=== PATIENT | female | born 1940 | race Caucasian/White ===

== ENCOUNTER → 2022-04-23 07:51 | Outpatient (CLI) | payer MEDICARE, SELFPAY ==
--- NOTE | 2022-04-23 | CA_ITS ---
FINAL REPORT CLINICAL HISTORY: .RF, Hx-previous dialysis FINDINGS: Aorta velocity: 139 cm/sec Right kidney: 8.3 cm. 2.9 cm Questionable calcified area in the upper pole the right kidney. Right intrarenal RI: 0.83 Right renal artery velocity: 128 cm/sec. Right RAR (Renal artery-Aortic Ratio): 0.92 Left Kidney: 186 cm. No evidence of hydronephrosis or mass. Left intrarenal RI: 0.82 Left renal artery velocity: 186 cm/sec. Left RAR (Renal Artery-Aortic Ratio): 1.35 IMPRESSION: No evidence of significant right renal artery stenosis. Less than 60% left renal artery stenosis. Questionable calcified area in the upper pole the right kidney. If indicated, renal mass protocol CT could further evaluate. CT angiogram or postcontrast MR angiogram would be more sensitive for evaluation of possible renal artery stenosis. Reviewed, Interpreted and Dictated by Julio Roberts III, MD Transcribed by Wilfrid Dugan Authenticated and [facility]
--- NOTE | 2022-04-23 08:38 | US_ITS ---
FINAL REPORT TECHNIQUE: Sonographic images were obtained of the retroperitoneum. CLINICAL HISTORY: CKD STAGE 4 FINDINGS: The right kidney measures 7.9 cm. The left kidney measures 9.7 cm. There are small renal cysts. There is a 1.7 cm left renal stone. There is a hyperechoic area in the upper pole of the left kidney measuring 3.3 cm of uncertain etiology. There is a small amount of left perinephric fluid that is nonspecific. The spleen measures 9.5 cm. IMPRESSION: Hyperechoic area of uncertain etiology in the upper pole the left kidney. CT could further evaluate. Left renal stone. Small amount of left perinephric fluid, nonspecific. Reviewed, Interpreted and Dictated by Julio Roberts III, MD Transcribed by Wilfrid Dugan Authenticated and [facility][1]
== END ==
PROVIDERS: Visit Provider Internal Medicine Nephrology
DX: N18.4 Chronic kidney disease, stage 4 (severe) (principal); E78.5 Hyperlipidemia, unspecified; E87.20 Acidosis, unspecified; I10 Essential (primary) hypertension
CPT/HCPCS: 76770; 93976

== ENCOUNTER → 2022-05-12 11:18 | Outpatient (CLI) | payer MEDICARE, SELFPAY ==
[2022-05-12 11:55] LABS: Microscopic, Urine URINE MICROSCOPIC (MICROSCOPIC)
[2022-05-12 12:28] LABS: Hematocrit 35.3 % (37.0-47.0); Hemoglobin 11.2 g/dL (12.2-16.2); Mean Corpuscular HGB Conc 31.9 g/dL (31.8-35.4); Mean Corpuscular Hemoglobin 30.1 pg (27.0-31.2); Mean Corpuscular Volume 94.5 fl (81-99); Platelet Count 318 K/mm3 (142-424); Red Blood Count 3.73 M/mm3 (4.20-5.40); Red Cell Distribution Width 15.6 % (11.5-17.5); White Blood Count 9.8 K/mm3 (4.8-10.8)
[2022-05-12 12:34] LABS: Appearance,Urine CLOUDY (Clear); Bilirubin,Urine Negative (Negative); Blood, Urine 3+ (Negative); Color,Urine YELLOW (Yellow); Glucose,Urine (UA) Negative (Negative); Ketones,Urine Negative (Negative); Leukocyte Esterase,Urine 2+ (Negative); Nitrate,Urine POSITIVE (Negative); PH,Urine 6.5 (5.0-8.5); Protein,Urine 2+ (Negative); Urobilinogen,Urine 0.2 EU/dl (0.2)
[2022-05-12 12:47] LABS: Hemoglobin A1C 8.1 % (4.0-6.0)
[2022-05-12 12:59] LABS: Bacteria,Urine 4+ /lpf; WBC,Urine TNTC #/hpf (0-3)
[2022-05-12 13:06] LABS: Creatinine,Urine Random 170 mg/dL (Not Estab.)
[2022-05-12 13:26] LABS: Alanine Aminotransferase 21 U/L (12-78); Albumin Level 3.6 g/dl (3.5-5.0); Alkaline Phosphatase 131 U/L (38-126); Aspartate Amino Transferase 25 U/L (14-36); Bilirubin,Total 0.7 mg/dl (0.2-1.3); Blood Urea Nitrogen 40 mg/dl (7-17); Calcium 9.9 mg/dl (8.4-10.2); Carbon Dioxide 17 mmol/L (22.0-30.0); Chloride 113 mmol/L (98-107); Estimated Glomerular Filt Rate 14 ml/min (>60); GFR (African American) 17 ML/MIN (>60); Globulin 3.5 g/dL (1.3-3.2); Glucose 272 mg/dl (74-100); Sodium 141 mmol/L (136-145); Total Protein,Serum 7.1 g/dl (6.3-8.2); Uric Acid 8.7 mg/dl (2.5-6.2)
[2022-05-12 13:38] LABS: Intact Parathyroid Hormone 58.3 pg/mL (7.5-53.5)
[2022-05-12 13:42] LABS: 25-OH Vitamin D, Total 71.8 ng/mL (30-100)
== END ==
PROVIDERS: Visit Provider Internal Medicine Nephrology
DX: E78.5 Hyperlipidemia, unspecified (principal); E87.20 Acidosis, unspecified; N18.4 Chronic kidney disease, stage 4 (severe); I10 Essential (primary) hypertension; R73.09 Other abnormal glucose
CPT/HCPCS: 36415; 80053; 81001; 82306; 82570; 83036; 83970; 84155; 84443; 84550; 85014; 85018; 85048; 85049; 87086; 87088; 87186

== ENCOUNTER → 2022-06-09 11:53 | Outpatient (CLI) | payer MEDICARE, SELFPAY ==
[2022-06-09 12:09] LABS: Microscopic, Urine URINE MICROSCOPIC (MICROSCOPIC)
[2022-06-09 12:47] LABS: Hematocrit 33.8 % (37.0-47.0); Hemoglobin 10.5 g/dL (12.2-16.2); Mean Corpuscular Hemoglobin 30.3 pg (27.0-31.2); Mean Corpuscular Volume 97.7 fl (81-99); Platelet Count 403 K/mm3 (142-424); Red Blood Count 3.46 M/mm3 (4.20-5.40); Red Cell Distribution Width 17.4 % (11.5-17.5); White Blood Count 9.3 K/mm3 (4.8-10.8)
[2022-06-09 12:54] LABS: Blood, Urine 3+ (Negative); Color,Urine YELLOW (Yellow); Glucose,Urine (UA) Negative (Negative); Ketones,Urine Negative (Negative); Leukocyte Esterase,Urine 2+ (Negative); Nitrate,Urine Negative (Negative); PH,Urine 5.5 (5.0-8.5); Protein,Urine 1+ (Negative); Urobilinogen,Urine 0.2 EU/dl (0.2)
[2022-06-09 12:58] LABS: Appearance,Urine Turbid (Clear); Bilirubin,Urine 2+ (Negative)
[2022-06-09 13:10] LABS: Bacteria,Urine 4+ /lpf; WBC,Urine 20-50 #/hpf (0-3)
[2022-06-09 13:16] LABS: Alanine Aminotransferase 22 U/L (12-78); Albumin Level 2.8 g/dl (3.5-5.0); Albumin/Globulin Ratio 0.9 (1.1-1.8); Alkaline Phosphatase 97 U/L (38-126); Anion Gap 13.2 mEq/L (5-15); Aspartate Amino Transferase 49 U/L (14-36); Bilirubin,Total 0.4 mg/dl (0.2-1.3); Blood Urea Nitrogen 24 mg/dl (7-17); Calcium 8.3 mg/dl (8.4-10.2); Carbon Dioxide 20 mmol/L (22.0-30.0); Chloride 112 mmol/L (98-107); Estimated Glomerular Filt Rate 18 ml/min (>60); GFR (African American) 21 ML/MIN (>60); Globulin 3.1 g/dL (1.3-3.2); Glucose 142 mg/dl (74-100); Potassium 4.2 mmoL/L (3.5-5.1); Sodium 141 mmol/L (136-145); Total Protein,Serum 5.9 g/dl (6.3-8.2); Uric Acid 10.2 mg/dl (2.5-6.2)
[2022-06-09 13:27] LABS: Intact Parathyroid Hormone 79.3 pg/mL (7.5-53.5)
[2022-06-09 13:32] LABS: 25-OH Vitamin D, Total 85.3 ng/mL (30-100)
[2022-06-09 14:27] LABS: Hemoglobin A1C 7.7 % (4.0-6.0)
[2022-06-09 15:31] LABS: Creatinine,Urine Random 115 mg/dL (Not Estab.)
== END ==
PROVIDERS: PCP Physician Assistant; Visit Provider Internal Medicine Nephrology
DX: N18.4 Chronic kidney disease, stage 4 (severe) (principal); E78.5 Hyperlipidemia, unspecified; I10 Essential (primary) hypertension; E87.29 Other acidosis
CPT/HCPCS: 36415; 80053; 81001; 82306; 82570; 83036; 83970; 84155; 84550; 85014; 85018; 85048; 85049; 87086; 87186

== ENCOUNTER → 2022-08-05 16:27 | Outpatient (CLI) | payer OTHER, SELFPAY ==
[2022-08-05 17:09] LABS: Basophils % 0.5 % (0.1-2.0); Eosinophils # 0.1 K/mm3 (0.0-0.4); Eosinophils % 1.3 % (0.1-12.0); Hematocrit 35.8 % (37.0-47.0); Hemoglobin 11.4 g/dL (12.2-16.2); Lymphocytes # 1.3 K/mm3 (0.7-4.5); Lymphocytes % 13.9 % (10-50); Mean Corpuscular HGB Conc 31.9 g/dL (31.8-35.4); Mean Corpuscular Hemoglobin 31.1 pg (27.0-31.2); Mean Corpuscular Volume 97.5 fl (81-99); Mean Platelet Volume 9.1 fl (7.4-10.4); Monocytes # 0.4 K/mm3 (0.1-1.0); Monocytes % 4.2 % (1.7-9.3); Neutrophils # 7.3 K/mm3 (1.8-7.8); Neutrophils % 80.1 % (37.0-80.0); Platelet Count 304 K/mm3 (142-424); Red Blood Count 3.67 M/mm3 (4.20-5.40); Red Cell Distribution Width 19.6 % (11.5-17.5); White Blood Count 9.1 K/mm3 (4.8-10.8)
[2022-08-05 18:46] LABS: Anion Gap 11.2 mEq/L (5-15); Blood Urea Nitrogen 37 mg/dl (7-17); Calcium 7.3 mg/dl (8.4-10.2); Carbon Dioxide 20 mmol/L (22.0-30.0); Chloride 112 mmol/L (98-107); Estimated Glomerular Filt Rate 18 ml/min (>60); GFR (African American) 21 ML/MIN (>60); Glucose 144 mg/dl (74-100); Potassium 3.2 mmoL/L (3.5-5.1); Sodium 140 mmol/L (136-145)
== END ==
PROVIDERS: PCP Nurse Practitioner Family; Visit Provider Nurse Practitioner Family
DX: E11.22 Type 2 diabetes mellitus with diabetic chronic kidney disease (principal); D63.8 Anemia in other chronic diseases classified elsewhere
CPT/HCPCS: 80048; 85025